=== PATIENT | female | born 1990 | race Caucasian/White ===

== ENCOUNTER 2017-10-04 06:11 | Day surgery (SDC) | payer MEDICAID ==
[~2017-10-04] VITALS: Ht 165.1 cm; Wt 92.5 kg
--- NOTE | ~2017-10-04 | OP ---
PATIENT NAME: OLAF WELLS MEDICAL RECORD: [id number] :89 LOCATION:D.OPS ADMISSION DATE: SURGEON: KARENA ARAUJO DPM DATE OF OPERATION: 10/04/2017 PREOPERATIVE DIAGNOSES: 1. Impinging capsulitis, right ankle. 2. Rupture of lateral collateral ligaments, right ankle. POSTOPERATIVE DIAGNOSES: 1. Impinging capsulitis, right ankle. 2. Rupture of lateral collateral ligaments, right ankle. PROCEDURES: 1. Right ankle arthroscopy. 2. Right ATF repair. 3. Right calcaneofibular ligament repair with use of gastroc graft from the posterior right leg. ANESTHESIA: Preoperative popliteal block per the anesthesia department with intraoperative general anesthesia. HEMOSTASIS: Right thigh tourniquet at 350 mmHg. PREOPERATIVE DETAILS: The patient was taken to the OR and placed on the operating table in supine position followed by induction of general anesthesia. The right extremity was then prepped and draped in usual aseptic technique followed by exsanguination of extremity and inflation of tourniquet. PROCEDURE #1: Right ankle arthroscopy. Two small stab incisions were made over the anterior aspect of the right ankle, one on the medial shoulder and one on the lateral shoulder. The camera was introduced through the medial port after blunt dissection to the joint capsule through a cannula. Initial inspection showed impinging capsulitis along the anterior margin of the joint. In the lateral portal, the synovial shaver was introduced and the impinging capsulitis was resected with the synovial shaver as well as some mild chondromalacia on the anterior distal tip of the tibia. The portals were switched. Camera was introduced laterally. Inspection of the lateral gutter showed the ATF ligament was significantly reduced in size and strength. There was also inversion stress test placed on the ankle showing that the calcaneofibular ligament was not intact. Continued synovial impinging synovitis was continued with the synovial shaver in the medial portal. The synovial shaver and the camera were then removed. PROCEDURE #2: ATF repair, right ankle. The lateral incision was extended in a hockey J-shape, moving posteriorly along the distal tip of the fibula. The incision was deepened down through subcutaneous tissue. The joint capsule of the ankle was then incised, giving access to the ATF ligament. The ligament was pretty much gone. I went ahead and reconstructed it with internal brace. Following the reconstruction, there was a negative anterior drawer sign, giving stability to the ATF ligament. At this time, CF ligament repair was prepared. PROCEDURE #3: CF ligament repair with internal brace and graft from the gastroc aponeurosis. The area of the distal tip of the fibula was visualized and freed as well as on the lateral wall of the calcaneus. The implants were used of the OPERATIVE REPORT [id number] OLAF WELLS internal brace, securing the internal brace where this calcaneofibular ligament was. This allowed excellent resistance against inversion. At this time, with the leg elevated, I was able to make a 3- to 4-cm linear incision over the posterior aspect of the right leg overlying the gastroc aponeurosis. Dissection was carried down bluntly, being sure to avoid the sural nerve and vein. It was retracted in the wound. Paratenon incision was made and the graft was taken from the aponeurosis, approximately 4 mm in width and approximately 2.5 cm to 3 cm in length. The wound was flushed and the skin was closed with skin mandie. Continuing on with the procedure of the CF repair, the graft was laid over the top of the internal brace and secured with FiberWire to the calcaneus and 2-0 Vicryl to the distal tip of the fibula. At this time, continuing repair of the ATF ligament, a modified Brostrom technique was used to overlie the internal brace. Once this was performed, 2-0 Vicryl was used to close rest of the joint capsule. Rapide 4-0 was used to close the subcutaneous tissue and 4-0 Rapide was used to close the skin in a subcuticular technique followed by Dermabond. The wound on the anterior medial aspect of the ankle was closed with 4-0 Rapide in a simple interrupted technique followed by Dermabond. Adaptic, 4 x 4, and Conform were used to dress the wounds followed by application of modified Dunaway compression dressing. Tourniquet was deflated. POSTOPERATIVE DETAILS: The patient tolerated the procedure well and left the OR with vital signs stable and vascular status at preop levels. The patient was transported to recovery per anesthesia in stable condition. TRANSINT:[id number] Voice Confirmation ID: [id number] DOCUMENT ID: [id number] KARENA ARAUJO DPM at 0905 CC: [id number] DICTATION DATE: 10/04/17 1236 DEPLOYMENT MANAGER: 10/04/17 1342 [facility] [place] 10/04/17 [id number] [place] [address]
[2017-10-04 07:02] LABS: HEMOGLOBIN 10.4 g/dL (12-16); MCHC 29.7 g/dL (31.0-37.0); MEAN PLATELET VOLUME 10.8 fL (7.4-10.4); RBC 4.73 10x6/uL (4.00-5.40)
[2017-10-04 07:50] VITALS: BP 105/64; Ht 165.1 cm; Wt 92.5 kg
== END 2017-10-04 14:40 | disposition home or self-care (01) ==
LOC: D.OPS 06:11 → D.PAN 09:45 → D.OPS 09:45
PROVIDERS: Anesthesiology
DX: M77.51 Other enthesopathy of right foot and ankle (principal); S93.411A Sprain of calcaneofibular ligament of right ankle, initial encounter; M94.271 Chondromalacia, right ankle and joints of right foot; Z01.812 Encounter for preprocedural laboratory examination; X58.XXXA Exposure to other specified factors, initial encounter